=== PATIENT | male | born 2000 | race Caucasian/White ===

== ENCOUNTER 2025-01-08 08:36 | Emergency (ER) | payer OTHER, BC, SELFPAY ==
[2025-01-08 08:58] VITALS: BP 139/88; PULSE 80; TEMP 36.8; O2SAT 99; BMI 27.8
--- OUTSIDE RECORDS SUMMARY | 2025-01-08 09:05 | XMS_ITS | Clinical Summary ---
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 Take before meals. Do not crush or chew.. 30 capsule ctive Active Problems ProblemNoted DateDiagnosed DateInternal derangement of left knee05/28/2023Left sided abdominal pain05/28/2023 Assessment & Plan (05/28/2023 5:02 PM EDT): Epigastric, LUQ pain - dull ache persistent with periods of worsening pain that is sharp. Symptoms present x 3 weeks. No associated nausea, vomiting, diarrhea, constipation. Pain is noticeably worse after fatty foods. No blood in stool, denies refluex symptoms Suspect dyspepsia - patient educated on lifestyle modifications, dietary restrictions. Will start patient on PPI, Patient counseled and educated on adverse effects, drug interactions andto reach out to office/pharmacy if questions or concerns related to new medications. Family History Medical HistoryRelationNameCommentsNo Known ProblemsFatherHypertensionMother RelationNameStatusCommentsFatherAliveMotherAlive Social History Tobacco UseTypesPacks/DayYears UsedDateSmoking Tobacco: NeverPassive Smoke Exposure: NeverSmokeless Tobacco: Never Tobacco Cessation:Counseling Given: Not Answered Alcohol UseStandard Drinks/WeekCommentsYes3 (1 standard drink = 0.6 oz pure alcohol)PHQ-2AnswerDate RecordedPatient Health Questionnaire-2 Xzvoj107 Sex and Gender InformationValueDate RecordedSex Assigned at BirthNot on file Legal KbgNqox3505/31/2022 7:10 PM EDTGender IdentityNot on fileSexual Orientation Not on file Last Filed Vital Signs Vital SignReadingTime TakenCommentsBlood Jbxbgjvy745/7405/28/2023 4:44 PM EDT Jsztq3007/11/2024 4:44 PM OEU681% X0Pnlbalageqh27.6 ??C (97.8 ??F)05/28/2023 4:44 PM EDTRespiratory Rate--Oxygen Saturation--Inhaled Oxygen Concentration-- Iydfvb81.2 kg (201 lb)05/28/2023 4:44 PM VODCruxcs468.9 cm (6')05/28/2023 4:44 PM EDTBody Mass Index27.26005/28/2023 4:44 PM EDT Plan of Treatment Not on file Insurance Care Teams Team MemberRelationshipSpecialtyStart DateEnd Date Martinez Rodrigez MD PCP - GeneralFamily Medicine05/22/23
--- OUTSIDE RECORDS SUMMARY | 2025-01-08 09:05 | XMS_ITS | Clinical Summary ---
Author Organization [facility] Address [address] [place] [address] Care Team Providers Care Director Zone Name Role Phone Unavailable Primary Care Provider Unavailabl e Social History Tobacco UseTypesPacks/DayYears UsedDateSmoking Tobacco: Never AssessedSex and Gender InformationValueDate RecordedSex Assigned at BirthNot on fileLegal Sex Male11/02/2021 2:03 PM EDTGender IdentityNot on fileSexual OrientationNot on file Last Filed Vital Signs Vital SignReadingTime TakenCommentsBlood Kwsrlaap600/7802 3:20 PM EST Atrtj0562 3:20 PM ESTTemperature--Respiratory Rate--Oxygen Ezmzeyqyko26% 04/25/2019 3:20 PM ESTInhaled Oxygen Concentration--Uszrul92.3 kg (199 lb) 04/25/2019 3:19 PM SYVUiagpb833.3 cm (5' 11 )04/25/2019 3:18 PM ESTBody Mass Index27.75004/25/2019 3:18 PM EST Plan of Treatment Not on file
--- OUTSIDE RECORDS SUMMARY | 2025-01-08 09:05 | XMS_ITS | Clinical Summary ---
[facility] Address [id number] 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 Name Role Phone Martinez Rodrigez MD Primary Care Provider [phone] Allergies No known active allergies Medications No known medications Active Problems No known active problems Social History Tobacco UseTypesPacks/DayYears UsedDateSmoking Tobacco: NeverSmokeless Tobacco: NeverAlcohol UseStandard Drinks/WeekCommentsNo0 (1 standard drink = 0.6 oz pure alcohol)ChildcareAnswerDate LdyiqwbnHpnxdvequVvuejns96/12/2019EmploymentAnswer Date YzphbvjwFcbmobxvqxVczdzbr56/12/2019Purpose - LifeAnswerDate RecordedPurpose and direction in slvqAqhyqpd41/11/2021Sex and Gender InformationValueDate RecordedSex Assigned at BirthNot on fileLegal HwgMpqh9910/22/2014 11:58 AM EDT Gender IdentityNot on fileSexual OrientationNot on file Last Filed Vital Signs Vital SignReadingTime TakenCommentsBlood Vbpslzxw408/7305 6:08 PM EDT Njxnq7041 6:08 PM HRAJseputnkuby00.7 ??C (98.1 ??F)07/25/2017 4:33 PM EDTRespiratory Rfcv6903 5:53 PM EDTOxygen Ofmczisnrw35%07/25/2017 6:08 PM EDTInhaled Oxygen Concentration--Vewhja62.6 kg (180 lb)07/25/2017 1:19 PM EDT Mmkezc745.3 cm (5' 11 )07/25/2017 1:19 PM EDTBody Mass Index25. 1:19 PM EDT Plan of Treatment Not on file Medical Devices ImplantedTypeAreaManufacturerDevice IdentifierShelf Expiration DateModel / Serial / LotMeniscal Cinch - [id number] - [id number] Implanted:Qty: 2 on 07/25/2017 [facility] ImplantLeft: [id number] / [id number] / [id number]:wasted one cinchExplantedTypeAreaManufacturerDevice IdentifierShelf Expiration DateModel / Serial / LotMeniscal Cinch - [id number] - [id number] Explanted:Qty: 1 on 07/25/2017 by Darnell Atkinson DO at [facility] ImplantLeft: [id number]/[id number] / [id number] / [id number]:bent, unusable to surgeon Insurance Care Teams Team MemberRelationshipSpecialtyStart DateEnd Date Martinez Rodrigez MD PCP - GeneralFamily Medicine07/25/17
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
--- NOTE | 2025-01-08 09:24 | PC.NURSE ---
PERRL-- 3mm. moves all extremeties times 4, strongly.
== END 2025-01-08 09:36 | disposition home or self-care (01) ==
PROVIDERS: Emergency Provider Emergency Medicine; PCP Family Medicine
DX: S00.83XA Contusion of other part of head, initial encounter (principal); V43.52XA Car driver injured in collision with other type car in traffic accident, initial encounter
CPT/HCPCS: 99281